=== PATIENT | female | born 1980 | race Caucasian/White ===

== ENCOUNTER 2021-05-07 01:21 | Outpatient (CLI) | payer MEDICAID, SELFPAY ==
--- NOTE | 2021-05-07 11:00 | DI.NM_ITS ---
APPROVED REPORT Exam: Exercise Treadmill Patient Location: Out-Patient Room/Bed: Stress Nurse: Saritha Su RN Ordering Provider:NATHAN FLOWERS MD Contact Number: [phone] BMI: 37.11 Baseline Rhythm: Sinus Rhythm Comment: low voltage Indications: DYSPNEA Medical History Medical History: Cardiomyopathy, HTN, SVT, Obesity Cardiac Medications: Furosemide, Hydrochlorothiazide, Metoprolol succinate, Levothyroxine Allergies: No known drug allergies Cardiac Risk Factors: FHX of CAD, HTN, Smoking (current), Obesity Previous Cardiac Procedures: None Pretest Chest Pain Characteristics: No chest pain Exercise History: Sedentary Physical Disabilities: None Lung Sounds: Clear to auscultation Heart Sounds: Regular Stress Test Details Test: Exercise stress testing was performed using a [place] protocol. Nuclear Acquisition: Rest Tc-99m/Stress Tc-99m 1 day Rest Isotope: Tc-99m Sestamibi. Dose: 11.6 Date: 05/07/2021 Injection Time: 1115 Stress Isotope: Tc-99m Sestamibi. Dose: 35.1 Date: 05/07/2021 Injection Time: 1325 HR Resting HR Supine: 81 bpm Max Heart Rate (APMHR): 178.646048 bpm Resting HR Standin bpm Target HR (85% APMHR): 151.780090 bpm Max HR Achieved: 156 bpm % of APMHR: 87.64 Recovery HR: 100 bpm HR response to stress: Normal HR response to stress BP Resting BP Supine: 118/78 mmHg Resting BP Standin/82 mmHg Max BP: 140/82 mmHg Recovery BP: 116/68 mmHg BP response to stress: Normal blood pressure response to stress. ECG Resting ECG: Sinus Rhythm Ectopy: none Comment: Low voltage; inverted T waves in leads V3, V4, V5, possibly inferior leads Stress ECG: Sinus Tachycardia ST Change: No significant ST segment changes noted Arrhythmia: PVCs Recovery ECG: Sinus Tachycardia Recovery ST Change: No significant ST segment changes noted Recovery Arrhythmia: PVCs Clinical Reason for Termination: Dyspnea Stress Symptoms: Dyspnea Exercise duration: 7 min29 sec Highest Stage Reached: Stage 3: 3.4 mph at 14% grade. Exercise capacity: 9.37 METs Cheng Treadmill Score: 7 Rate Pressure Product: [id number] Stress ECG Conclusion 1. Resting electrocardiogram showed diffuse ST-T abnormalities 2. Patient exercised on the [place] protocol and completed a workload of 9.37 METS, stopping due to leslie rtness of breath 3. Normal heart rate and blood pressure response to exercise. The patient achieved 87% of predicted heart rate for age 4. There were no electrocardiographic findings of myocardial ischemia 5. Occasional PVCs were seen Cheng Treadmill Score is 7 which is Low risk. Stress Test Summary STAGE Time (mins) Speed (mph) Grade (%) HR BP SYMPTOMS METS Supine 81 118/78 Standing 88 122/82 1 3 1.7 10 126 128/86 99% 4.6 2 6 2.5 12 150 132/86 c/o mild SOB 7 3 9 3.4 14 c/o moderate SOB, SpO2 100% 10.2 1 min recovery 130 140/82 3 min recovery 102 122/68 6 min recovery 100 116/68 MPI Conclusion Normal myocardial perfusion, no ischemia or infarction EF 43% Radiologist Interpretation Radiologist Interpretation by: Benson Draper MD Interpretation Date/Time: 05/08/2021 16:17:30
== END 2021-05-07 01:41 ==
PROVIDERS: Visit Provider Internal Medicine Interventional Cardiology
DX: R06.09 Other forms of dyspnea (principal); I10 Essential (primary) hypertension; E66.8 Other obesity; I47.1 Supraventricular tachycardia
CPT/HCPCS: 78452; 93017

== ENCOUNTER 2024-08-14 19:59 | Emergency (ER) | payer MEDICAID, SELFPAY ==
[2024-08-14 20:05] VITALS: BP 141/92; PULSE 99; RESP 20; TEMP 36.4; O2SAT 98
--- NOTE | 2024-08-14 20:20 | ED.GENADUL_ITS ---
Discharge Plan Disposition Patient Disposition: Home Condition: Stable Discharge Details Clinical Impression: Prescription refill Primary Care Provider: Unknown,Unknown ED Provider: Abner Moore Home Meds and New Rx's Prescriptions: New gabapentin 300 mg capsule 300 mg PO TID 30 Days Qty: 90 0RF Continued metoprolol succinate 50 mg tablet extended release 24 hr 75 mg PO DAILY hydrochlorothiazide 25 mg tablet 25 mg PO DAILY furosemide 20 mg tablet 20 mg PO DAILY PRN lorazepam [Ativan] 1 mg tablet 1 mg PO BID-TID PRN clonidine HCl 0.1 mg tablet 0.1 mg PO TID No Action gabapentin 300 mg capsule 300 mg PO TID Discharge Instructions Instructions: Gabapentin Additional Instructions: You were seen in the emergency department for your request for refill of gabapentin, happy to provide this for you, 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 If your withdrawal syndrome worsens severely please return to the emergency department for evaluation or for any other emergent concerns. Referrals: [facility] [Outside] Discharge Data Discharge Date/Time-TO BE ENTERED AT DEPARTURE: 08/14/24 20:46 HPI General Date/Time Provider Initiated Documentation: 08/14/24 20:04 . HPI Narrative: 44 year-old female presents to ED today by POV/ambulating with a chief complaint of detox'ing from fentanyl, last used 3 days ago, requesting a refill of gabapentin only for RLS. Quality described as detox'ing at-home, requesting only gabapentin, no radiation to tremulous movements, profound lethargy, chest pain, shortness of breath, vomiting, psychosis. Severity is described as moderate. Palliating factors include nothing specific. Provoking factors include nothing specific. Patient not anticoagulated. Related Data Home Medications ?Medication ?Instructions ?Recorded ?Confirmed clonidine HCl 0.1 mg tablet 0.1 mg PO TID 08/14/24 08/15/24 furosemide 20 mg tablet 20 mg PO DAILY PRN 08/14/24 08/15/24 gabapentin 300 mg capsule 300 mg PO TID 08/14/24 08/15/24 gabapentin 300 mg capsule 300 mg PO TID 30 days #90 caps 08/14/24 08/15/24 hydrochlorothiazide 25 mg tablet 25 mg PO DAILY 08/14/24 08/15/24 lorazepam 1 mg tablet (Ativan) 1 mg PO BID-TID PRN 08/14/24 08/15/24 metoprolol succinate 50 mg 75 mg PO DAILY 08/14/24 08/15/24 tablet,extended release 24 hr Previous Rx's ?Medication ?Instructions ?Recorded gabapentin 300 mg capsule 300 mg PO TID 30 days #90 caps 08/14/24 Allergies Allergy/AdvReac Type Severity Reaction Status Date / Time No Known Allergies Allergy Unverified 08/15/24 17:34 General Stated Complaint: RX Refill SAYDA: 4 Review of Systems All systems reviewed & are unremarkable except as noted in HPI and below Exam Narrative Exam Narrative: GENERAL APPEARANCE: Well-nourished, non-toxic, awake and alert, atraumatic, no acute distress. SKIN: Warm, pink, dry, intact, without rashes/lesions/ulcerations. HEAD: Normocephalic, atraumatic, normal hair distribution for gender/age. EYES: Normal conjunctiva, no exudates on lids/lashes. ENT: Nares patent, no circumoral cyanosis, no facial swelling NECK: Supple, trachea midline, painless cervical ROM. LUNGS/CHEST: Non-labored respirations, normal A/P diameter, symmetrical expansion, no chest wall deformity HEART (CV/PV): No peripheral edema, no JVD. ABDOMEN: Soft, non-distended, no guarding. MSK: Normal ROM, no swelling/deformity to bilateral UEs or LEs, moving all extremities without weakness, no cyanosis, spine midline without tenderness, normal curvature. NEURO: Mental Status AAOx4 - alert to person, place, time, events No facial droop, no forehead involvement. Motor: No focal weakness - strength 5/5 in bilateral UEs and LEs, proximal and distal, symmetric. Sensory: sensation intact to light touch globally. Gait normal: patient ambulated without ataxia into ED room. PSYCH: euthymic, cooperative, pleasant, appropriate speech Course Vital Signs Vital signs: Vital Signs Temperature 36.4 C 08/14/24 20:05 Pulse 99 H 08/14/24 20:05 Respiratory Rate 08/14/24 20:05 Blood Pressure 141/92 H 08/14/24 20:05 Pulse Oximetry 98 08/14/24 20:05 Temperature 36.4 C 08/14/24 20:05 Temperature Source Oral 08/14/24 20:05 Pulse 99 H 08/14/24 20:05 Respiratory Rate 20 08/14/24 20:05 Blood Pressure 141/92 H 08/14/24 20:05 Blood Pressure Position Sitting 08/14/24 20:05 Pulse Oximetry 98 08/14/24 20:05 Oxygen Delivery Method Room Air 08/14/24 20:05 Oxygen Flow Rate 0 08/14/24 20:05 Pain Level 8 08/14/24 20:05 Medical Decision Making This dictation utilizes [id number] dictation software and may contain unedited grammatical errors. 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 Quality described as detox'ing at-home, requesting only gabapentin, no radiation to tremulous movements, profound lethargy, chest pain, shortness of breath, vomiting, psychosis. Severity is described as moderate. Palliating factors include nothing specific. Provoking factors include nothing specific. Patients' medical history: Opiate use. Family and social history: Last use of fentanyl 3 days ago, denies EtOH use. Pertinent exam findings / vital signs include benign cardiopulmonary status, patient mentating normally, denies any acute abdominal pain requesting only gabapentin refill. Differential / pathologies of concern include fentanyl withdrawal. Diagnostic studies of: - None. Interventions of: - Rx for gabapentin, recommend substance use counseling ED Course/Assessment/Plan: 44-year-old female presents with restless leg syndrome requesting a refill of her gabapentin, states she is detoxing at home from fentanyl and seems honest in her effort, she states that she does not require any other medications at this time denies chest pain and has relatively stable vitals and a benign general appearance, I am happy to refill her gabapentin I counseled her on seeking substance abuse counselor. Findings not consistent with active severe withdrawal. Disposition of prescription refill. Patient verbalized understanding of the plan and return to ED criteria and engaged in shared decision making. Medical Records Medical records reviewed: Yes I reviewed the patient's medical records. Quality:SDOH Health Related Social Needs: No Data to Display PFSH All Active Problems (Updated 08/15/24 @ 18:09 by Laureano Parker MD) Opiate withdrawal (Acute) Prescription refill (Acute) Social History Smoking/Tobacco Use Status: Current every day Tobacco Type: cigarettes Years smoked: 30 Tobacco: How many years used: 30 Smoking risk assessment performed?: Yes Alcohol Intake: never Substance use type: former substance user and opiates Details: Pt detoxing, on day 3. Housing: other Additional Social history: Living with son
[2024-08-14] MEDS: Gabapentin 300 MG CAP PO (20:31)
== END 2024-08-14 20:46 | disposition home or self-care (01) ==
LOC: ER 20:23
PROVIDERS: Emergency Provider Physician Assistant
DX: F11.93 Opioid use, unspecified with withdrawal (principal); Z76.0 Encounter for issue of repeat prescription
CPT/HCPCS: 99283 ×2

== ENCOUNTER 2024-08-15 17:22 | Emergency (ER) | payer MEDICAID, SELFPAY ==
[2024-08-15 17:28] VITALS: BP 165/118; PULSE 109; RESP 20; TEMP 36.7; O2SAT 98
--- NOTE | 2024-08-15 18:06 | ED.GENADUL_ITS ---
Discharge Plan Disposition Patient Disposition: Home Condition: Stable Discharge Details Clinical Impression: Opiate withdrawal Primary Care Provider: Unknown,Unknown ED Provider: Laureano Parker Anza Meds and New Rx's Prescriptions: Continued metoprolol succinate 50 mg tablet extended release 24 hr 75 mg PO DAILY hydrochlorothiazide 25 mg tablet 25 mg PO DAILY furosemide 20 mg tablet 20 mg PO DAILY PRN lorazepam [Ativan] 1 mg tablet 1 mg PO BID-TID PRN clonidine HCl 0.1 mg tablet 0.1 mg PO TID gabapentin 300 mg capsule 300 mg PO TID 30 Days Qty: 90 0RF gabapentin 300 mg capsule 300 mg PO TID Discharge Instructions Additional Instructions: You can try taking 2 of your gabapentin 3 times a day. If needed at night you can take 2 of your lorazepam. Your withdrawal symptoms should start feeding in the next few days. Follow-up with your primary care provider and if you feel more ill return to the emergency department for reevaluation. HPI General Mode of arrival: ambulatory . Date/Time Provider Initiated Documentation: 08/15/24 17:25 . Limitations to Documentation: no limitations . Information obtained by: patient . History of Present Illness 44 year old F presents to the emergency department with the chief complaint of fentanyl withdrawal symptoms , described as moderate, Patient started experiencing this day(s) (4) and it has been constant. No relieving factors improve symptom(s), No exacerbating factors reported . Patient notes denies chest pain and shortness of breath. Related Data Home Medications ?Medication ?Instructions ?Recorded ?Confirmed clonidine HCl 0.1 mg tablet 0.1 mg PO TID 08/14/24 08/15/24 furosemide 20 mg tablet 20 mg PO DAILY PRN 08/14/24 08/15/24 gabapentin 300 mg capsule 300 mg PO TID 08/14/24 08/15/24 gabapentin 300 mg capsule 300 mg PO TID 30 days #90 caps 08/14/24 08/15/24 hydrochlorothiazide 25 mg tablet 25 mg PO DAILY 08/14/24 08/15/24 lorazepam 1 mg tablet (Ativan) 1 mg PO BID-TID PRN 08/14/24 08/15/24 metoprolol succinate 50 mg 75 mg PO DAILY 08/14/24 08/15/24 tablet,extended release 24 hr Previous Rx's ?Medication ?Instructions ?Recorded gabapentin 300 mg capsule 300 mg PO TID 30 days #90 caps 08/14/24 Allergies Allergy/AdvReac Type Severity Reaction Status Date / Time No Known Allergies Allergy Unverified 08/15/24 17:34 General Stated Complaint: OD/Poison SAYDA: 3 Review of Systems All systems reviewed & are unremarkable except as noted in HPI and below Constitutional Constitutional: Denies chills, Denies fever(s) and Denies weakness Cardiovascular Cardiovascular: Denies chest pain and Denies dyspnea Respiratory Respiratory: Denies cough and Denies dyspnea Gastrointestinal Gastrointestinal: Denies abdominal pain and Reports nausea Neurologic Neurologic: Denies weakness Psychiatric Psychiatric: Denies homicidal ideation and Denies suicidal ideation Exam Const General: no acute distress Orientation: alert HENMT Head: normal to inspection Ears: external ears normal General nose exam: external nose normal Mouth: moist mucous membranes Eyes General: appearance normal, both eyes and all related structures Neck Neck: normal visual inspection Resp Effort & Inspection: normal respiratory effort and able to speak in complete sentences Cardio Rate: regular rate Skin General skin exam: no rashes or lesions noted Neuro General: patient alert and patient oriented x3 Extrem General: normal to inspection Psych Mental Status: mental status grossly normal Course Vital Signs Vital signs: Vital Signs Temperature 36.7 C 08/15/24 17:28 Pulse 109 H 08/15/24 17:28 Respiratory Rate 20 08/15/24 17:28 Blood Pressure 165/118 H 08/15/24 17:28 Pulse Oximetry 98 08/15/24 17:28 Temperature 36.7 C 08/15/24 17:28 Pulse 109 H 08/15/24 17:28 Respiratory Rate 20 08/15/24 17:28 Blood Pressure 165/118 H 08/15/24 17:28 Blood Pressure Position Sitting 08/15/24 17:28 Pulse Oximetry 98 08/15/24 17:28 Oxygen Delivery Method Room Air 08/15/24 17:28 Oxygen Flow Rate 0 08/15/24 17:28 Medical Decision Making 44-year-old female who states she was using fentanyl by snorting it up until 4 days ago and decided to stop comes in with continued symptoms of withdrawal. She is not interested in having any treatment such as Suboxone. She states she has had nausea, anxiety and difficulty sleeping due to restless legs. She was seen yesterday and had a refill of her gabapentin and she is also taking clonidine and lorazepam. She denies any other drug use or alcohol use. She is stable on arrival alert answers 4. She has no thoughts of self-harm or wanting to harm others. She has no abdominal tenderness, moving all extremities well. I discussed with her that these are typical for opiate withdrawal symptoms and Suboxone is usually very good medication to treat this but she still declines. I did advise she can increase her gabapentin to 600 mg 3 times a day and if needed to sleep at night she can take 2 of her 1 mg lorazepam doses. She is 4 days from her last fentanyl dose so advised that her symptoms should start fading away in the next few days. She declines to see recovery room nurse, states she feels safe in her current environment. She will follow-up with her PCP and return precautions given Differential Diagnosis Differential Diagnosis: Anxiety, opiate withdrawal Quality:SDOH Health Related Social Needs: No Data to Display PFSH All Active Problems (Updated 08/15/24 @ 18:09 by Laureano Parker MD) Opiate withdrawal (Acute) Prescription refill (Acute) Social History Smoking/Tobacco Use Status: Current every day Tobacco Type: cigarettes Years smoked: 30 Tobacco: How many years used: 30 Smoking risk assessment performed?: Yes Alcohol Intake: never Substance use type: former substance user and opiates Details: Pt detoxing, on day 3. Housing: other Additional Social history: Living with son
[2024-08-15 18:38] VITALS: BP 165/118; PULSE 109; RESP 15; RESP 20; TEMP 36.7; O2SAT 98
== END 2024-08-15 18:39 | disposition home or self-care (01) ==
LOC: ER 18:32
PROVIDERS: Emergency Provider Emergency Medicine
DX: F11.23 Opioid dependence with withdrawal (principal); F17.210 Nicotine dependence, cigarettes, uncomplicated
CPT/HCPCS: 99283

== ENCOUNTER 2024-08-24 15:17 | Emergency (ER) | payer MEDICAID, SELFPAY ==
[2024-08-24] VITALS (62 sets, daily range): BP systolic 147–173; BP diastolic 81–108; PULSE 64–113; RESP 11–28; TEMP 36.3; O2SAT 93–100
--- NOTE | 2024-08-24 16:45 | DI.CT_ITS ---
Exam(s) CT ABDOMEN PELVIS W EXAM: CT ABDOMEN PELVIS W CLINICAL HISTORY: epigastric pain, no BM x3 days. TECHNIQUE: Imaging Protocol: Axial computed tomography images with coronal and sagittal reformatted images were created and reviewed CONTRAST MATERIAL: Intravenous: Omnipaque 350 Contrast volume:100 ml Oral: no COMPARISON: None FINDINGS: ABDOMEN and PELVIS: Lung Bases: No acute findings. Liver: Mild hepatic steatosis. No suspicious mass. Gallbladder and biliary tract: Cholecystectomy. No biliary dilation. Pancreas: Normal density. No abnormal calcifications or inflammatory process. No evidence of mass. Spleen: Normal. Kidneys: Normal size, contour and axis. No radiodense stones. No obstructive uropathy. No suspicious masses seen. Adrenal glands: No masses seen. Vasculature: Abdominal aorta non-dilated. Soft tissues: Unremarkable. Bladder: Nearly empty. No gross wall thickening. No calculi.No focal mass. Bowel: The stomach is nearly empty but unremarkable. No obstruction. No bowel wall thickening. Berhane endix normal. Normal quantity of stool. Peritoneal cavity: No ascites. No focal collection. No mesenteric inflammatory response. No free air . Bones: Unremarkable for age. Reproductive organs: Unremarkable. Lymph nodes: No pathologically enlarged lymph nodes. IMPRESSION:: No acute abnormality in the abdomen or pelvis. Normal quantity of stool. RADIATION DOSE DELIVERED: Total DLP DATA REPOSITORY: All CT scans at this facility are submitted to the National Radiology Data Registry (NRDR) Dose Index Registry (DIR) with the [employer] (A[employer]). RADIATION OPTIMIZATION: All CT scans at this facility use at least one of these dose optimization te chniques: automated exposure control; mA and/or kV adjustment per patient size (includes targeted exa ms where dose is matched to clinical indication); or iterative reconstruction.
[2024-08-24] MEDS: Ondansetron 4 MG/2 ML VIAL IVP (17:08)
[2024-08-24] MEDS: Ketorolac 15 MG/ML VIAL IVP (17:08)
[2024-08-24] MEDS: ACETAMINOPHEN 1,000 MG/100 ML BAG 1000 MG (17:09)
[2024-08-24] MEDS: Lactated Ringers 1,000 ML 1000 ML IV (17:09)
[2024-08-24 17:19] LABS: Lactate 1.1 mmol/L (<or=2.0)
[2024-08-24 17:20] LABS: Abs Immature Grans 0.04 10^3/uL (0.0-0.06); Absolute Basophil Count 0.05 10^3/uL (0.0-0.2); Absolute Eosinophil Count 0.07 10^3/uL (0.0-0.7); Absolute Lymphocyte Count 2.97 10^3/uL (1.2-3.4); Absolute Monocyte Count 1.05 10^3/uL (0.1-0.8); Basophils % 0.4 %; Eosinophils % 0.6 %; HCT 47.6 % (36.0-46.0); HGB 16.1 g/dL (11.2-15.7); Immature Grans % 0.3 %; Lymphocytes % 24.7 %; MCH 30.6 pg (27.0-33.0); MCHC 33.8 % (32.0-36.0); MCV 90 fL (80-95); MPV 12.4 fL (8.0-11.0); Monocytes % 8.7 %; Neutrophils % 65.3 %; Platelet Count 250 10^3/uL (130-400); RBC 5.27 10^6/uL (3.93-5.22); RDW 12.8 % (11.7-14.6); RDW-SD 42.2 fL; WBC 12.03 10^3/uL (4.4-10.8)
[2024-08-24 17:26] LABS: Absolute Neutrophil Count 7.86 10^3/uL (1.2-6.7)
[2024-08-24 17:35] LABS: ALT 23 U/L (14-59); AST 14 U/L (15-37); Albumin 4.3 g/dL (3.4-5.0); Alkaline Phosphatase 106 U/L (46-116); Anion Gap 6.5 mmol/L (3-11); BUN 8 mg/dL (7-18); Bilirubin, Total 0.6 mg/dL (0.2-1.0); CO2 28.5 mmol/L (21.0-32.0); CREATININE 0.8 mg/dL (0.55-1.02); Calcium 9.5 mg/dL (8.5-10.1); Chloride 105 mmol/L (98-107); Estimated GFR 91.97 (mL/min/1.73m2); Glucose 103 mg/dL (74-106); Lipase 42 U/L (<78); Magnesium 2.2 mg/dL (1.8-2.4); Potassium 4.1 mmol/L (3.5-5.1); Sodium 140 mmol/L (136-145); Total Protein 8.6 g/dL (6.4-8.2)
[2024-08-24] MEDS: Normal Saline - Diluent 50 ML VIAL IJ (17:36)
[2024-08-24] MEDS: Omnipaque 350 MG/ML 100 ML BTL IJ (17:37)
--- NOTE | 2024-08-24 18:17 | ED.GENADUL_ITS ---
Discharge Plan Disposition Patient Disposition: Home Condition: Stable Discharge Details Clinical Impression: Gastritis Primary Care Provider: Unknown,Unknown ED Provider: Abner Moore Home Meds and New Rx's Prescriptions: Continued metoprolol succinate 50 mg tablet extended release 24 hr 75 mg PO DAILY lorazepam [Ativan] 1 mg tablet 1 mg PO BID-TID PRN clonidine HCl 0.1 mg tablet 0.1 mg PO TID gabapentin 300 mg capsule 300 mg PO TID 30 Days Qty: 90 0RF No Action promethazine 25 mg tablet 25 mg PO TID PRNQty: 14 0RF pantoprazole [Protonix] 20 mg tablet,delayed release (DR/EC) 20 mg PO DAILY Qty: 30 0RF sucralfate [Carafate] 1 gram tablet 1 g PO BID Qty: 30 0RF Discharge Instructions Instructions: Gastritis ED Additional Instructions: You were seen in the emergency department for your gastritis, you likely have abdominal pain related to gastroesophageal reflux or other upper GI tract pathology. Please try p.o. famotidine/Pepcid 20 mg twice per day for about 2 weeks if this improves her symptoms he likely had ulcerative pathology, you could also seek a referral from your regular doctor to general surgery practice for an upper endoscopy, please return for any intractable nausea or vomiting, black tarry stools, please discontinue Imodium. Stay well-hydrated and monitor at home return for severe acute worsening. Discharge Data Discharge Date/Time-TO BE ENTERED AT DEPARTURE: 08/24/24 20:04 HPI General Date/Time Provider Initiated Documentation: 08/24/24 15:49 . HPI Narrative: 44 year-old female presents to ED today by POV/ambulating with a chief complaint of central upper abdominal pain and nausea with some scant vomiting after detox'ing herself from fentanyl at home for the past 2 weeks with success of remission so far, with onset of nausea/vomiting since yesterday. Quality described as generalized upper abdominal pain, nausea, cannot equate with oral intake or worsening with food, no radiation to fever, chest pain, dizziness, shortness of breath, liquid diarrhea, fevers. Severity is described as moderate to severe. Palliating factors include nothing specific attempted. Provoking factors include nothing specific. Patient not anticoagulated. Related Data Home Medications ?Medication ?Instructions ?Recorded ?Confirmed clonidine HCl 0.1 mg tablet 0.1 mg PO TID 08/14/24 08/25/24 gabapentin 300 mg capsule 300 mg PO TID 30 days #90 caps 08/14/24 08/25/24 lorazepam 1 mg tablet (Ativan) 1 mg PO BID-TID PRN 08/14/24 08/25/24 metoprolol succinate 50 mg 75 mg PO DAILY 08/14/24 08/25/24 tablet,extended release 24 hr pantoprazole 20 mg tablet,delayed 20 mg PO DAILY #30 tabs 08/25/24 release (Protonix) promethazine 25 mg tablet 25 mg PO TID PRN #14 tabs 08/25/24 sucralfate 1 gram tablet (Carafate) 1 g PO BID #30 tabs 08/25/24 Previous Rx's ?Medication ?Instructions ?Recorded gabapentin 300 mg capsule 300 mg PO TID 30 days #90 caps 08/14/24 pantoprazole 20 mg tablet,delayed 20 mg PO DAILY #30 tabs 08/25/24 release (Protonix) promethazine 25 mg tablet 25 mg PO TID PRN #14 tabs 08/25/24 sucralfate 1 gram tablet (Carafate) 1 g PO BID #30 tabs 08/25/24 Allergies Allergy/AdvReac Type Severity Reaction Status Date / Time No Known Allergies Allergy Unverified 08/25/24 12:45 General Stated Complaint: Abd Prob SAYDA: 3 Review of Systems All systems reviewed & are unremarkable except as noted in HPI and below Exam Narrative Exam Narrative: GENERAL APPEARANCE: Well-nourished, non-toxic, awake and alert, atraumatic, no acute distress. SKIN: Warm, pink, dry, intact, without rashes/lesions/ulcerations. HEAD: Normocephalic, atraumatic, normal hair distribution for gender/age. EYES: Normal conjunctiva, no exudates on lids/lashes. ENT: Nares patent, no circumoral cyanosis, no facial swelling NECK: Supple, trachea midline, painless cervical ROM. LUNGS/CHEST: Lungs CTA bilaterally-no rhonchi/rales/wheezes diffusely, non- labored respirations, normal A/P diameter, symmetrical expansion, no chest wall deformity HEART (CV/PV): Regular rate and rhythm without murmur, no peripheral edema, no JVD. ABDOMEN: Soft, non-distended, no guarding, epigastric tenderness without rebound tenderness, negative Li sign, no Rovsing's. MSK: Normal ROM, no swelling/deformity to bilateral UEs or LEs, moving all extremities without weakness, no cyanosis, spine midline without tenderness, normal curvature. NEURO: Mental Status AAOx4 - alert to person, place, time, events No facial droop, no forehead involvement. Motor: No focal weakness - strength 5/5 in bilateral UEs and LEs, proximal and distal, symmetric. Sensory: sensation intact to light touch globally. Gait normal: patient ambulated without ataxia into ED room. PSYCH: euthymic, cooperative, pleasant, appropriate speech Course Vital Signs Vital signs: Vital Signs Temperature 36.3 C L 08/24/24 15:19 Pulse 113 H 08/24/24 15:19 Respiratory Rate 18 08/24/24 15:19 Blood Pressure 154/88 H 08/24/24 15:19 Pulse Oximetry 98 08/24/24 15:19 Temperature 36.3 C L 08/24/24 15:26 Pulse 113 H 08/24/24 15:26 Respiratory Rate 18 08/24/24 15:26 Blood Pressure 154/88 H 08/24/24 15:26 Pulse Oximetry 98 08/24/24 15:26 Pain Level 8 08/24/24 15:26 Lab/Test Results Lab/Test Results: Laboratory Tests Range/Units 08/24/24 17:15 WBC (4.4-10.8) 10^3/uL 12.03 H RBC (3.93-5.22) 10^6/uL 5.27 H Hgb (11.2-15.7) g/dL 16.1 H Hct (36.0-46.0) % 47.6 H MCV (80-95) fL 90 MCH (27.0-33.0) pg 30.6 MCHC (32.0-36.0) % 33.8 RDW (11.7-14.6) % 12.8 Plt Count (130-400) 10^3/uL 250 MPV (8.0-11.0) fL 12.4 H Immature Gran % % 0.3 Neutrophils % % 65.3 Lymphocytes % % 24.7 Monocytes % % 8.7 Eosinophils % % 0.6 Basophils % % 0.4 Nucleated RBC % (0.0-0.3) % 0.0 Absolute Neutrophils (1.2-6.7) 10^3/uL 7.86 H Absolute Lymphocytes (1.2-3.4) 10^3/uL 2.97 Absolute Monocytes (0.1-0.8) 10^3/uL 1.05 H Absolute Eosinophils (0.0-0.7) 10^3/uL 0.07 Absolute Basophils (0.0-0.2) 10^3/uL 0.05 VBG Lactate (<or=2.0) mmol/L 1.1 Sodium (136-145) mmol/L 140 Potassium (3.5-5.1) mmol/L 4.1 Chloride (98-107) mmol/L 105 Carbon Dioxide (21.0-32.0) mmol/L 28.5 Anion Gap (3-11) mmol/L 6.5 BUN (7-18) mg/dL 8 Creatinine (0.55-1.02) mg/dL 0.8 Est GFR (CKD-EPI 2020) (mL/min/1.73m2) 91.97 Glucose (74-106) mg/dL 103 Calcium (8.5-10.1) mg/dL 9.5 Magnesium (1.8-2.4) mg/dL 2.2 Total Bilirubin (0.2-1.0) mg/dL 0.6 AST (15-37) U/L 14 L ALT (14-59) U/L 23 Alkaline Phosphatase (46-116) U/L 106 Total Protein (6.4-8.2) g/dL 8.6 H Albumin (3.4-5.0) g/dL 4.3 Lipase (<78) U/L 42 Medical Decision Making This dictation utilizes [id number] dictation software and may contain unedited grammatical errors. 44 year-old female presents to ED today by POV/ambulating with a chief complaint of central upper abdominal pain and nausea with some scant vomiting after detox'ing herself from fentanyl at home for the past 2 weeks with success of remission so far, with onset of nausea/vomiting since yesterday. Quality described as generalized upper abdominal pain, nausea, cannot equate with oral intake or worsening with food, no radiation to fever, chest pain, dizziness, shortness of breath, liquid diarrhea, fevers. Patient endorses no bowel movements in the past couple days. Severity is described as moderate to severe. Palliating factors include nothing specific attempted. Provoking factors include nothing specific. Patients' medical history: History of gastritis. Family and social history: Denies IVDU, denies EtOH use. Pertinent exam findings / vital signs include epigastric/right upper quadrant tenderness without overt Li sign, benign cardiopulmonary exam, neuro intact, no intractable nausea or vomiting, afebrile. Differential / pathologies of concern include gastritis, biliary colic, renal colic less likely, gastroenteritis, withdrawal syndrome, pancreatitis. Diagnostic studies of: - CBC, CMP, lactate, magnesium, lipase, CT ABD/pelvis with contrast. - CBC shows a mild nonspecific leukocytosis of 12.03 with mild elevation of hemoglobin to 16.1 likely in the setting of hemoconcentration - Lactate negative, no sepsis - CMP shows no actionable abnormality - Magnesium within normal limits - Lipase negative - CT shows no acute pathology-no CBD dilatation, no evidence of hydronephrosis, normal amount of stool with no evidence of bowel obstruction Interventions of: - Symptomatic treatment with IV ketorolac, Zofran, acetaminophen, 1 L IVF LR, 20 mg famotidine IVP, GI cocktail. ED Course/Assessment/Plan: 44-year-old female presents with centralized abdominal pain and some nausea and vomiting since yesterday, she has been detoxing herself from fentanyl for the past 2 weeks at home with success. She states no excessive ibuprofen use recently, her laboratory workup is quite benign with no evidence of sepsis, nonspecific leukocytosis possibly due to vomiting, no major electrolyte abnormalities and a normal CT scan, I do suspect gastritis, possibly due to the stress of withdrawal syndrome, I recommended a trial of famotidine. I recommend the patient follow-up with possible referral to general surgery if she fails to improve, otherwise I do not suspect any acute emergent process at this time but stressed strict return criteria for any acute worsening especially with severe abdominal pain with fever, intractable nausea or vomiting, vomiting of coffee- ground like material or starting to have black tarry stools. Findings not consistent with intractable nausea or vomiting, severe dehydration, pancreatitis, biliary pathology, renal colic. Disposition of Gastritis. Patient verbalized understanding of the plan and return to ED criteria and engaged in shared decision making. Medical Records Medical records reviewed: Yes I reviewed the patient's medical records. Imaging Data Radiologic Study: Attestation: I personally reviewed and interpreted this imaging study as follows: Imaging: CT Scan Radiologist's impression: EXAM: CT ABDOMEN PELVIS W CLINICAL HISTORY: epigastric pain, no BM x3 days. TECHNIQUE: Imaging Protocol: Axial computed tomography images with coronal and sagittal reformatted images were created and reviewed CONTRAST MATERIAL: Intravenous: Omnipaque 350 Contrast volume:100 ml Oral: no COMPARISON: None FINDINGS: ABDOMEN and PELVIS: Lung Bases: No acute findings. Liver: Mild hepatic steatosis. No suspicious mass. Gallbladder and biliary tract: Cholecystectomy. No biliary dilation. Pancreas: Normal density. No abnormal calcifications or inflammatory process. No evidence of mass. Spleen: Normal. Kidneys: Normal size, contour and axis. No radiodense stones. No obstructive uropathy. No suspicious masses seen. Adrenal glands: No masses seen. Vasculature: Abdominal aorta non-dilated. Soft tissues: Unremarkable. Bladder: Nearly empty. No gross wall thickening. No calculi.No focal mass. Bowel: The stomach is nearly empty but unremarkable. No obstruction. No bowel wall thickening. Appendix normal. Normal quantity of stool. Peritoneal cavity: No ascites. No focal collection. No mesenteric inflammatory response. No free air. Bones: Unremarkable for age. Reproductive organs: Unremarkable. Lymph nodes: No pathologically enlarged lymph nodes. IMPRESSION:: No acute abnormality in the abdomen or pelvis. Normal quantity of stool. Lab Data Lab results reviewed: Yes I reviewed the patient's lab results. Labs: Laboratory Tests Range/Units 08/24/24 17:15 WBC (4.4-10.8) 10^3/uL 12.03 H RBC (3.93-5.22) 10^6/uL 5.27 H Hgb (11.2-15.7) g/dL 16.1 H Hct (36.0-46.0) % 47.6 H MCV (80-95) fL 90 MCH (27.0-33.0) pg 30.6 MCHC (32.0-36.0) % 33.8 RDW (11.7-14.6) % 12.8 Plt Count (130-400) 10^3/uL 250 MPV (8.0-11.0) fL 12.4 H Immature Gran % % 0.3 Neutrophils % % 65.3 Lymphocytes % % 24.7 Monocytes % % 8.7 Eosinophils % % 0.6 Basophils % % 0.4 Nucleated RBC % (0.0-0.3) % 0.0 Absolute Neutrophils (1.2-6.7) 10^3/uL 7.86 H Absolute Lymphocytes (1.2-3.4) 10^3/uL 2.97 Absolute Monocytes (0.1-0.8) 10^3/uL 1.05 H Absolute Eosinophils (0.0-0.7) 10^3/uL 0.07 Absolute Basophils (0.0-0.2) 10^3/uL 0.05 VBG Lactate (<or=2.0) mmol/L 1.1 Sodium (136-145) mmol/L 140 Potassium (3.5-5.1) mmol/L 4.1 Chloride (98-107) mmol/L 105 Carbon Dioxide (21.0-32.0) mmol/L 28.5 Anion Gap (3-11) mmol/L 6.5 BUN (7-18) mg/dL 8 Creatinine (0.55-1.02) mg/dL 0.8 Est GFR (CKD-EPI 2020) (mL/min/1.73m2) 91.97 Glucose (74-106) mg/dL 103 Calcium (8.5-10.1) mg/dL 9.5 Magnesium (1.8-2.4) mg/dL 2.2 Total Bilirubin (0.2-1.0) mg/dL 0.6 AST (15-37) U/L 14 L ALT (14-59) U/L 23 Alkaline Phosphatase (46-116) U/L 106 Total Protein (6.4-8.2) g/dL 8.6 H Albumin (3.4-5.0) g/dL 4.3 Lipase (<78) U/L 42 Quality:SDOH Health Related Social Needs: No Data to Display PFSH All Active Problems (Updated 08/25/24 @ 14:56 by CHRISTIANO Bosch) Acute epigastric pain (Acute) Nausea & vomiting (Acute) Gastritis (Acute) Opiate withdrawal (Acute) Prescription refill (Acute) Social History Smoking/Tobacco Use Status: Current every day Tobacco Type: cigarettes Years smoked: 30 Tobacco: How many years used: 30 Smoking risk assessment performed?: Yes Alcohol Intake: never Substance use type: former substance user and opiates Details: Pt detoxing, 2nd week of it 08/24/24 Housing: other Additional Social history: Living with son
[2024-08-24] MEDS: Famotidine 20 MG/2 ML VIAL IVP (19:12)
== END 2024-08-24 20:04 | disposition home or self-care (01) ==
PROVIDERS: Emergency Provider Physician Assistant
DX: R11.2 Nausea with vomiting, unspecified (principal); R10.13 Epigastric pain; F11.93 Opioid use, unspecified with withdrawal
CPT/HCPCS: 99285; 99284; 96374; 96375; 80053; 83690; 96361; 74177; 83605; 83735; 85025; J0131; J1885; J2405; J3490

== ENCOUNTER 2024-08-25 12:36 | Emergency (ER) | payer MEDICAID, SELFPAY ==
[2024-08-25] VITALS (11 sets, daily range): BP systolic 149–190; BP diastolic 91–119; PULSE 76–106; RESP 14–20; TEMP 36.6–37; O2SAT 90–100
[2024-08-25] MEDS: Ondansetron O.D.T. 4 MG TABEF (13:05)
[2024-08-25] MEDS: Pantoprazole 40 MG VIAL IVP (13:06)
[2024-08-25] MEDS: Prochlorperazine 10 MG/2 ML VIAL IVP (13:06)
[2024-08-25] MEDS: Normal Saline 1,000 ML 1000 ML IV (13:06)
[2024-08-25] MEDS: Famotidine 20 MG/2 ML VIAL IVP (13:07)
[2024-08-25] MEDS: diphenhydrAMINE 50 MG/ML VIAL 25 MG IVP (15:29)
[2024-08-25] MEDS: Scopolamine 1 MG/3 DAYS PATCH TD (15:30)
--- NOTE | 2024-08-25 15:35 | W.ED.GENAD ---
Discharge Plan Disposition Patient Disposition: Home Discharge Details Clinical Impression: Nausea & vomiting, Acute epigastric pain Primary Care Provider: Unknown,Unknown ED Provider: Lara Joseph Home Meds and New Rx's Prescriptions: New promethazine 25 mg tablet 25 mg PO TID PRNQty: 14 0RF pantoprazole [Protonix] 20 mg tablet,delayed release (DR/EC) 20 mg PO DAILY Qty: 30 0RF sucralfate [Carafate] 1 gram tablet 1 g PO BID Qty: 30 0RF Continued metoprolol succinate 50 mg tablet extended release 24 hr 75 mg PO DAILY lorazepam [Ativan] 1 mg tablet 1 mg PO BID-TID PRN clonidine HCl 0.1 mg tablet 0.1 mg PO TID gabapentin 300 mg capsule 300 mg PO TID 30 Days Qty: 90 0RF Discharge Instructions Instructions: Nausea and Vomiting, Adult ED Additional Instructions: Take the Phenergan up to 3 times daily as needed for nausea and vomiting Use the Carafate as prescribed this may help your discomfort Take the Protonix daily as prescribed Follow-up with [facility] You are doing a great job remaining sober, keep up the good work Referrals: [facility] [Outside] [facility] [Outside] [facility] General Date/Time Provider Initiated Documentation: 08/25/24 12:45. HPI Narrative: The patient is a 44-year-old female who presents with nausea and vomiting for the past 5 days. She reports cessation of fentanyl use on the , following a tapering regimen prescribed by her physician, which included clonidine and Ativan. Since then, she has maintained sobriety. However, she continues to struggle with uncontrollable nausea and vomiting. She sought medical attention last evening, during which she underwent a CT scan and laboratory tests. Despite being administered antiemetics in the emergency department, she experienced persistent vomiting throughout the evening. She does not have any additional medications at home. She reports no chest pain, shortness of breath, dizziness, or weakness. She also reports epigastric pain, which she attributes to the vomiting. is not a possibility for her. Related Data Home Medications ?Medication ?Instructions ?Recorded ?Confirmed clonidine HCl 0.1 mg tablet 0.1 mg PO TID 08/14/24 08/25/24 gabapentin 300 mg capsule 300 mg PO TID 30 days #90 caps 08/14/24 08/25/24 lorazepam 1 mg tablet (Ativan) 1 mg PO BID-TID PRN 08/14/24 08/25/24 metoprolol succinate 50 mg 75 mg PO DAILY 08/14/24 08/25/24 tablet,extended release 24 hr pantoprazole 20 mg tablet,delayed 20 mg PO DAILY #30 tabs 08/25/24 release (Protonix) promethazine 25 mg tablet 25 mg PO TID PRN #14 tabs 08/25/24 sucralfate 1 gram tablet (Carafate) 1 g PO BID #30 tabs 08/25/24 Previous Rx's ?Medication ?Instructions ?Recorded gabapentin 300 mg capsule 300 mg PO TID 30 days #90 caps 08/14/24 pantoprazole 20 mg tablet,delayed 20 mg PO DAILY #30 tabs 08/25/24 release (Protonix) promethazine 25 mg tablet 25 mg PO TID PRN #14 tabs 08/25/24 sucralfate 1 gram tablet (Carafate) 1 g PO BID #30 tabs 08/25/24 Allergies Allergy/AdvReac Type Severity Reaction Status Date / Time No Known Allergies Allergy Unverified 08/25/24 12:45 General Stated Complaint: Abd Prob SAYDA: 3 Exam Narrative Exam Narrative: The patient is actively retching in the room. She is alert and oriented x4, answering questions appropriately. Oropharynx is pink and moist. There is tenderness in the epigastrium. Vital Signs Vitals are stable aside from mild hypertension. Course Vital Signs Vital signs: Vital Signs Temperature 36.6 C 08/25/24 12:40 Pulse 106 H 08/25/24 12:40 Respiratory Rate 20 08/25/24 12:40 Blood Pressure 159/119 H 08/25/24 12:40 Pulse Oximetry 97 08/25/24 12:40 Temperature 37.0 C 08/25/24 15:12 Pulse 83 08/25/24 15:12 Respiratory Rate 14 08/25/24 15:12 Blood Pressure 164/91 H 08/25/24 15:12 Blood Pressure Mean 131 08/25/24 14:20 Blood Pressure Position Sitting 08/25/24 12:44 Pulse Oximetry 100 08/25/24 15:12 Oxygen Delivery Method Room Air 08/25/24 12:44 Oxygen Flow Rate 0 08/25/24 12:44 Pain Level 6 08/25/24 15:12 Medical Decision Making CBC, CMP, lipase within normal limits. CT abdomen/pelvis from last evening shows no acute abnormality. Initial Assessment: 44-year-old female with nausea and vomiting for the past 5 days, likely due to fentanyl withdrawal. Epigastric pain secondary to vomiting. Stable vitals with mild hypertension. ED Course: - Reviewed CT abdomen and pelvis from last evening, no acute abnormality. - Labs from last evening: CBC, CMP, lipase all within normal limits. - Administered antiemetics. - Placed scopolamine patch. - Gave single dose of Benadryl. - Discharged patient home with Phenergan. - Recovery team discussed methadone/Suboxone initiation, patient declined. Final Assessment: Patient showed improvement after antiemetics. Discharged in stable condition with stable vitals. Encouraged close follow-up. Clinical Impression: - Nausea and vomiting likely due to fentanyl withdrawal. - Epigastric pain secondary to vomiting. - Substance use disorder. Disposition: - Discharge: Patient discharged home in stable condition. - Follow-Up: Follow-up tomorrow. MDM Components Evaluation: - Number of Differential Diagnoses or Management Options: Nausea and vomiting likely due to fentanyl withdrawal, epigastric pain secondary to vomiting, substance use disorder. - Amount and Complexity of Data Reviewed: CT abdomen and pelvis, CBC, CMP, lipase. - Risk of Complication and Morbidity or Mortality: Mild hypertension, risk of complications from substance use disorder and withdrawal. Quality:[facility] Health Related Social Needs: No Data to Display PFSH All Active Problems (Updated 08/25/24 @ 14:56 by CHRISTIANO Bosch) Acute epigastric pain (Acute) Nausea & vomiting (Acute) Gastritis (Acute) Opiate withdrawal (Acute) Prescription refill (Acute) Social History Smoking/Tobacco Use Status: Current every day Tobacco Type: cigarettes Years smoked: 30 Tobacco: How many years used: 30 Smoking risk assessment performed?: Yes Alcohol Intake: never Substance use type: former substance user and opiates Details: Pt detoxing, 2nd week of it 08/24/24 Housing: other Additional Social history: Living with son
== END 2024-08-25 15:52 | disposition home or self-care (01) ==
PROVIDERS: Emergency Provider Physician Assistant
DX: R11.2 Nausea with vomiting, unspecified (principal); R19.7 Diarrhea, unspecified; R10.13 Epigastric pain
CPT/HCPCS: 99284; 99283; 96374; 96375; 96361; J0780; J1200; J2470